=== PATIENT | female | born 1970 | race Caucasian/White ===

== ENCOUNTER 2017-11-18 07:25 | Outpatient (CLI) | payer SELFPAY ==
[2017-11-18 12:00] LABS: BASOPHILS # (AUTO) 0.1 10^3/uL (0.0-0.1); BASOPHILS % (AUTO) 1.2 %; EOSINOPHILS # (AUTO) 0.1 10^3/uL (0.0-0.7); EOSINOPHILS % (AUTO) 1.6 %; HGB - HEMOGLOBIN 14.2 g/dL (12.0-16.0); LYMPHOCYTES % (AUTO) 32.8 %; MEAN CORPUSCULAR HEMOGLOBIN 30.1 pg (27.0-31.0); MEAN CORPUSCULAR HGB CONC 33.2 g/dL (32.0-36.0); MEAN CORPUSCULAR VOLUME 90.7 fL (81.0-99.0); MEAN PLATELET VOLUME 7.9 fL (7.9-10.8); MONOCYTES # (AUTO) 0.4 10^3/uL (0.0-1.0); MONOCYTES % (AUTO) 5.9 %; NEUTROPHILS # (AUTO) 3.6 10^3/uL (1.5-6.6); NEUTROPHILS % (AUTO) 58.5 %; PLT - PLATELET COUNT 344 10^3/uL (130-450); RED BLOOD COUNT 4.71 10^6/uL (4.20-5.40); RED CELL DISTRIBUTION WIDTH 12.5 % (12.0-15.0); WHITE BLOOD COUNT 6.2 x10^3/uL (4.8-10.8)
[2017-11-18 12:06] LABS: ALBUMIN 4.4 g/dL (3.2-5.5); ALBUMIN/GLOBULIN RATIO 1.4 (1.0-2.2); CALCIUM 9.1 mg/dL (8.5-10.3); CREATININE 0.9 mg/dL (0.4-1.0); TOTAL PROTEIN 7.6 g/dL (6.7-8.2)
[2017-11-18 12:26] LABS: THYROID STIMULATING HORMONE 1.46 uIU/mL (0.34-5.60)
[2017-11-18 12:32] LABS: FERRITIN 75.8 ng/mL (11.0-306.8)
== END 2017-11-18 07:26 | disposition home or self-care (01) ==
LOC: LAB.F 07:25
PROVIDERS: ATTEND Nurse Practitioner Family
DX: Z13.1 Encounter for screening for diabetes mellitus (principal); Z13.228 Encounter for screening for other metabolic disorders; Z13.21 Encounter for screening for nutritional disorder
CPT/HCPCS: 36415; 80053; 82607; 82728; 84443; 85025

== ENCOUNTER 2021-06-02 07:08 | Outpatient (CLI) | payer BC ==
[2021-06-02 16:25] LABS: RHEUMATOID FACTOR NEGATIVE (Negative)
[2021-06-06 04:49] LABS: ANA SCREEN NEGATIVE (NEGATIVE)
== END 2021-06-02 07:09 | disposition home or self-care (01) ==
LOC: LAB.S 07:08
PROVIDERS: ATTEND Nurse Practitioner Family
DX: M25.50 Pain in unspecified joint (principal)
CPT/HCPCS: 36415; 82784; 85651; 86038; 86140; 86430

== ENCOUNTER 2022-01-16 07:10 | Outpatient (CLI) | payer BC ==
[2022-01-16 14:44] LABS: HCT - HEMATOCRIT 42.9 % (37.0-47.0); HGB - HEMOGLOBIN 13.9 g/dL (12.0-16.0); MEAN CORPUSCULAR HEMOGLOBIN 29.6 pg (27.0-31.0); MEAN CORPUSCULAR HGB CONC 32.4 g/dL (32.0-36.0); MEAN CORPUSCULAR VOLUME 91.3 fL (81.0-99.0); MEAN PLATELET VOLUME 10.3 fL (7.9-10.8); RED BLOOD COUNT 4.7 10^6/uL (4.20-5.40); RED CELL DISTRIBUTION WIDTH 12.4 % (12.0-15.0); WHITE BLOOD COUNT 9.8 x10^3/uL (4.8-10.8)
[2022-01-16 15:16] LABS: ALBUMIN/GLOBULIN RATIO 1.3 (1.0-2.2); ALKALINE PHOSPHATASE 35 IU/L (42-121); ALT ALANINE AMINOTRANSFERASE 16 IU/L (10-60); AST ASPARTATE AMINOTRANSFERASE 20 IU/L (10-42); BILIRUBIN,TOTAL 0.8 mg/dL (0.2-1.0); BUN - BLOOD UREA NITROGEN 12 mg/dL (6-20); CALCIUM 8.9 mg/dL (8.5-10.3); CARBON DIOXIDE - CO2 28 mmol/L (21-32); CHLORIDE 101 mmol/L (101-111); CHOL/HDL RATIO 5.1 (<4.4); CHOLESTEROL 225 mg/dL; CREATININE 1.1 mg/dL (0.4-1.0); GFR - MDRD 52 (>89); GLUCOSE 83 mg/dL (70-100); HDL CHOLESTEROL 44 mg/dL; LDL CHOLESTEROL,CALCULATED 155 mg/dL; LDL/HDL RATIO 3.5 (<4.4); POTASSIUM 4.2 mmol/L (3.5-5.0); SODIUM 137 mmol/L (135-145); TOTAL PROTEIN 7.2 g/dL (6.7-8.2); TRIGLYCERIDES 128 mg/dL; VLDL CHOLESTEROL 26 mg/dL
== END 2022-01-16 07:11 | disposition home or self-care (01) ==
LOC: LAB.S 07:10
PROVIDERS: ATTEND Family Medicine
DX: Z00.00 Encounter for general adult medical examination without abnormal findings (principal)
CPT/HCPCS: 36415; 80053; 80061; 82306; 83721; 85027

== ENCOUNTER 2022-09-13 07:07 | Outpatient (CLI) | payer BC ==
--- NOTE | 2022-09-13 15:02 | XRAY Report ---
PROCEDURE: Cervical Spine 2 View INDICATIONS: NECK PAIN ON RIGHT SIDE TECHNIQUE: 3 view(s) of the cervical spine were acquired. COMPARISON: None. FINDINGS: Bones: No fractures or dislocations to the C7-T1 level. The lateral masses of C1 appear intact on t he odontoid view. No suspicious bony lesions. There is moderate to severe disc space narrowing at C 6-7. Mild scattered uncovertebral arthropathy is present. Soft tissues: No prevertebral soft tissue swelling. IMPRESSION: Degenerative changes most severe at C5-6. Reviewed by: Rosio Wagoner MD on 09/13/2022 3:01 PM PDT Approved by: Rosio Wagoner MD on 09/13/2022 3:01 PM PDT Station ID: [id number]
== END 2022-09-13 07:08 | disposition home or self-care (01) ==
LOC: DI.S 07:07
PROVIDERS: ATTEND Family Medicine
DX: M47.812 Spondylosis without myelopathy or radiculopathy, cervical region (principal)

== ENCOUNTER 2022-10-06 09:34 | Outpatient (CLI) | payer BC ==
--- NOTE | 2022-10-08 17:03 | MRI Report ---
PROCEDURE: CERVICAL SPINE WO INDICATIONS: NECK PAIN TECHNIQUE: Noncontrast sagittal T1 spin echo and T2 fast spin echo, sagittal STIR, foraminal oblique sagittal T2 fast spin echo, and axial gradient echo or T2 fast spin echo through the cervical spine. COMPARISON: X-ray cervical spine 09/13/2022 FINDINGS: Image quality: Excellent. Alignment and Curvature: There is slight reversal of cervical curvature. There is trace retrolisthes is of C6 on C7. Bone Marrow: Marrow demonstrates normal overall signal. Minimal reactive endplate changes are prese nt C6-7. Spinal Cord: Visualized spinal cord has normal size and signal. No cerebellar tonsillar herniation. Paraspinous Soft Tissues: No paravertebral masses. Prevertebral soft tissues are normal in thicknes s. Discs: Mild to moderate desiccation is present C6-7. C2-C3: No disc bulge, spinal stenosis or foraminal narrowing. C3-C4: Mild disc bulge without spinal stenosis. Mild to moderate right and mild left foraminal narr owing with uncovertebral hypertrophy, right greater than left. C4-C5: Mild disc bulge without spinal stenosis. Moderate right and mild to moderate left foraminal n arrowing with uncovertebral hypertrophy, right greater than left. C5-C6: Mild disc bulge without spinal stenosis. Mild bilateral foraminal narrowing with uncovertebra l hypertrophy. C6-C7: Mild disc bulge without spinal stenosis. Moderate bilateral foraminal narrowing with uncovert ebral hypertrophy. C7-T1: No disc bulge, spinal stenosis or foraminal narrowing. IMPRESSION: Scattered disc bulges. Overall mild to moderate foraminal narrowing most severe at C4-5 and C6-7 secondary to uncovertebral arthropathy. Reviewed by: Rosio Wagoner MD on 10/08/2022 5:01 PM PDT Approved by: Rosio Wagoner MD on 10/08/2022 5:01 PM PDT Station ID: [id number]
== END 2022-10-06 09:35 | disposition home or self-care (01) ==
LOC: DI 09:34
PROVIDERS: ATTEND Family Medicine
DX: M50.31 Other cervical disc degeneration, high cervical region (principal); M48.02 Spinal stenosis, cervical region; M47.812 Spondylosis without myelopathy or radiculopathy, cervical region